=== PATIENT | male | born 1990 | race Caucasian/White ===

== ENCOUNTER 2017-02-15 23:56 | Emergency (ER) | payer OTHER ==
[~2017-02-15] VITALS: Ht 170.2 cm; Wt 70.3 kg
[2017-02-16 00:07] VITALS: BP 120/72
[2017-02-16] MEDS ORDERED: TETANUS/DIPHTHERIA TOX ADSORB ADULT 0.5ML SYR/VIAL (90714) IM ONE (05:15)
[2017-02-16] MEDS ORDERED: DERMABOND TOPICAL SKIN ADHESIVE TOP ONE (05:15)
== END 2017-02-16 05:54 | disposition home or self-care (01) ==
LOC: M ED 02-16 01:04
DX: S01.81XA Laceration without foreign body of other part of head, initial encounter (principal); V00.131A Fall from skateboard, initial encounter; Y92.410 Unspecified street and highway as the place of occurrence of the external cause; Y93.51 Activity, roller skating (inline) and skateboarding; Y99.8 Other external cause status; Z88.0 Allergy status to penicillin